=== PATIENT | male | born 1955 | race Caucasian/White ===

== ENCOUNTER → 2016-05-04 | Outpatient (CLI) | payer OTHER ==
[~2016-05-04] MED LIST: AMLO-114 PO; ASPI81TA28 PO; ATOR10TA88 PO; CHOL100010 PO; CYAN1CAP4 PO; CYAN5000; DXY100 PO; GABA-112 PO; GLC500 PO; HYZ/10015 PO; METO50TA16 PO; NVLGI7030 SC
[2016-05-04 12:48] LABS: ALT/SGPT 33 U/L (12-78); AST/SGOT 18 U/L (15-37); BLOOD UREA NITROGEN 22 mg/dl (7-18); BUN/CREATININE RATIO 18.5 (10-20); CARBON DIOXIDE 25 mmol/L (21-32); CHLORIDE 105 mmol/L (98-107); CHOLESTEROL 203 mg/dl (0-200); ESTIMATED AVERAGE GLUCOSE 194 mg/dl; GLUCOSE 156 mg/dl (70-99); HA1C FLAG Normal (Normal); SODIUM 139 mmol/L (136-145)
[2016-05-04 12:51] LABS: ALB/GLOB RATIO 1.1 (0.9-2); ALKALINE PHOSPHATASE 73 U/L (45-117); HDL CHOLESTEROL 51 mg/dl; LDL CHOLESTEROL CALCULATED 119 mg/dl; TRIGLYCERIDES 164 mg/dl (0-150); VERY LOW DENSITY LIPOPROT CALC 33 mg/dl
== END | disposition home or self-care (01) ==
LOC: C.LABPVFM 07:15
PROVIDERS: ATTEND Internal Medicine Endocrinology, Diabetes & Metabolism
DX: E11.49 Type 2 diabetes mellitus with other diabetic neurological complication (principal); E11.65 Type 2 diabetes mellitus with hyperglycemia; I10 Essential (primary) hypertension; E78.5 Hyperlipidemia, unspecified

== ENCOUNTER → 2016-08-14 | Outpatient (CLI) | payer OTHER ==
[~2016-08-14] MED LIST changes: +ATOR10TA82 PO; -ATOR10TA88 PO
[2016-08-14 13:20] LABS: ESTIMATED AVERAGE GLUCOSE 134 mg/dl; HA1C FLAG Normal (Normal)
[2016-08-14 13:34] LABS: ALT/SGPT 26 U/L (12-78); BLOOD UREA NITROGEN 21 mg/dl (7-18); BUN/CREATININE RATIO 17.3 (10-20); CARBON DIOXIDE 29 mmol/L (21-32); CHLORIDE 104 mmol/L (98-107); GLUCOSE 138 mg/dl (70-99); POTASSIUM 3.8 mmol/L (3.5-5.1); SODIUM 139 mmol/L (136-145)
[2016-08-14 13:37] LABS: ALB/GLOB RATIO 1.1 (0.9-2); ALKALINE PHOSPHATASE 80 U/L (45-117); AST/SGOT 22 U/L (15-37)
== END | disposition home or self-care (01) ==
LOC: C.LABPVFM 09:17
PROVIDERS: ATTEND Nurse Practitioner Adult Health
DX: E11.49 Type 2 diabetes mellitus with other diabetic neurological complication (principal)

== ENCOUNTER 2016-11-14 08:16 | Inpatient (IN) | payer OTHER ==
[~2016-11-14] VITALS: Ht 177.8 cm; Wt 114.0 kg
--- NOTE | 2016-11-14 08:27 | EMERGENCY ROOM VISIT NOTE ---
History First contact with patient: 08:25 Chief Complaint: FEVER Stated Complaint: [id number] IN STOMACH-BACK PAIN History of Present Illness The patient is a 60 year old male who presents to the Emergency Room via private vehicle with complaints of coming by female "fever, shaking, belching pain in stomach, back pain". He states that Sunday afternoon he developed nausea, fever, chills as well as shakes followed by belching/eructation. He states that he took 2 Aleve which seemed to alleviate the shaking and eructation. He then states that he later developed epigastric abdominal pain. He notes that this is something he is been battling since his open heart surgery. Of which occurred in April 2012, in [facility]. This was after an myocardial infarction. He states that later Sunday, into Sunday morning he developed mid back pain that he notes and describes as "achy". He states this radiates to the posterior neck. Review of Systems A complete 10-point Review of Systems was discussed with the patient, with pertinent positives and negatives listed in the History of Present Illness. All remaining Review of Systems questions can be considered negative unless otherwise specified. Past Medical/Surgical History Medical Problems: (1) Sepsis Diabetes, heart disease, elevated blood pressure Social History Smoking Status: Never Smoker Lives locally. Current/Historical Medications Scheduled Amlodipine (Norvasc), 10 MG PO DAILY Aspirin (Aspirin Ec), 81 MG PO DAILY Atorvastatin (Lipitor), 10 MG PO Q2D Cholecalciferol (Vitamin D), 1,000 UNITS PO DAILY Cyanocobalamin (B-12), 5,000 MCG PO DAILY Gabapentin (Neurontin), 300 MG PO QAM Gabapentin (Neurontin), 100 MG PO QPM Hctz/Losartan (Hyzaar 25MG/100MG), 1 TAB PO DAILY Insulin Aspart 70/30 (Novolog Mix 70/30), 30 SC QAM Insulin Aspart 70/30 (Novolog Mix 70/30), 25 SC QPM Metformin HCl (Metformin HCl), 500 MG PO BID Metoprolol Tartrate (Lopressor) (Lopressor), 50 MG PO DAILY Physical Exam Vital Signs Date Time Temp Pulse Resp B/P (MAP) Pulse Ox O2 Delivery O2 Flow Rate FiO2 11/14/16 12:40 90 11/14/16 12:35 93 Room Air 11/14/16 12:30 36.8 88 24 148/93 93 Room Air 11/14/16 11:30 73 18 121/73 94 Room Air 11/14/16 10:36 74 94 11/14/16 10:31 117/65 11/14/16 10:06 76 25 91 11/14/16 10:01 103/64 11/14/16 09:56 99/63 11/14/16 09:11 93 Room Air 11/14/16 09:06 77 17 93 11/14/16 09:01 100/68 11/14/16 08:46 81 23 93 11/14/16 08:44 85 11/14/16 08:31 126/72 11/14/16 08:21 38.0 92 20 115/73 93 Room Air Physical Exam VITAL SIGNS - Vital signs and nursing notes were reviewed. Afebrile, normotensive, non-tachycardic and saturating on room air 92%. GENERAL -60-year-old male appearing his stated age who is in no acute distress. Communicates well with provider and answers questions appropriately. SKIN - Without rashes. No petechial rashes. There is a small erythematous speck on the patient's left anterior foot. No drainage. HEAD - NC/AT. EYES - PERRL with EOMI bilaterally. Sclera anicteric. EARS - No deformities of external structures noted on gross examination bilaterally. NOSE - Midline and without cyanosis. No epistaxis or purulent drainage noted. Septum midline without deviation or septal hematoma noted. MOUTH/OROPHARYNX - Without perioral cyanosis. Buccal mucosa pink and moist and without leukoplakia. NECK - Neck with FROM. Supple to palpation. No lymphadenopathy noted. No nuchal rigidity. LUNGS - Chest wall symmetric without accessory muscle use, intercostals retractions, or central cyanosis. Normal vesicular breath sounds CTA B/L. No wheezes, rales, or rhonchi appreciated. CARDIAC - RRR with S1/S2. No murmur, rubs, or gallops appreciated. ABDOMEN - Abdominal contour normal without pulsations or visible masses. BS normoactive all four quadrants. Slight tenderness in the periumbilical region. No palpable masses, hepatosplenomegaly, or ascites noted. EXTREMITIES - No clubbing or peripheral cyanosis. No pretibial edema present. NEUROLOGIC - Cranial nerves II through XII grossly intact. Sensory intact to light touch throughout. PSYCH - A&O and cooperates fully with examiner. Pt is very pleasant and interacts well with examiner. Medical Decision & Procedures ER Provider Diagnostic Interpretation: ABDOMINAL ULTRASOUND, RIGHT UPPER QUADRANT HISTORY: elevated bilirubin and epigastric abdominal pain. COMPARISON: None. FINDINGS: Pancreas: The pancreatic head and tail are obscured by overlying bowel gas. The remaining portions of the pancreas are within normal limits. Liver: The liver is echogenic consistent with fatty change. Gallbladder: No gallbladder wall thickening. No gallstones. CBD: 5 mm. Right kidney: No hydronephrosis. IMPRESSION: 1. Hepatic steatosis. 2. Normal gallbladder. No gallstones. Electronically signed by: Gonzalez Armas M.D. 11/14/2016 11:44 AM Dictated Date/Time: 11/14/2016 11:36 AM CHEST 2 VIEWS ROUTINE HISTORY: Epigastric abdominal pain, eructation, back pain, febrile COMPARISON: None. FINDINGS: The lungs are clear. Cardiac silhouette is normal in size. No pleural effusions. No pneumothorax. Poststernotomy changes. IMPRESSION: No acute process. Electronically signed by: Gonzalez Armas M.D. 11/14/2016 9:46 AM Dictated Date/Time: 11/14/2016 9:45 AM Laboratory Results 11/14/16 09:02 Red Blood Count 5.41, Mean Corpuscular Volume 87.8, Mean Corpuscular Hemoglobin 30.5, Mean Corpuscular Hemoglobin Concent 34.7, Mean Platelet Volume 11.0, Neutrophils (%) (Auto) 86.3, Lymphocytes (%) (Auto) 6.2, Monocytes (%) (Auto) 5.8, Eosinophils (%) (Auto) 0.0, Basophils (%) (Auto) 0.6, Neutrophils # (Auto) 5.55, Lymphocytes # (Auto) 0.40, Monocytes # (Auto) 0.37, Eosinophils # (Auto) 0.00, Basophils # (Auto) 0.04 11/14/16 09:02 Test 11/14/16 09:02 11/14/16 09:09 11/14/16 09:24 White Blood Count 6.43 K/uL (4.8-10.8) Red Blood Count 5.41 M/uL (4.7-6.1) Hemoglobin 16.5 g/dL (14.0-18.0) Hematocrit 47.5 % (42-52) Mean Corpuscular Volume 87.8 fL (80-100) Mean Corpuscular Hemoglobin 30.5 pg (25-34) Mean Corpuscular Hemoglobin Concent 34.7 g/dl (32-36) Platelet Count 105 K/uL (130-400) Mean Platelet Volume 11.0 fL (7.4-10.4) Neutrophils (%) (Auto) 86.3 % Lymphocytes (%) (Auto) 6.2 % Monocytes (%) (Auto) 5.8 % Eosinophils (%) (Auto) 0.0 % Basophils (%) (Auto) 0.6 % Neutrophils # (Auto) 5.55 K/uL (1.4-6.5) Lymphocytes # (Auto) 0.40 K/uL (1.2-3.4) Monocytes # (Auto) 0.37 K/uL (0.11-0.59) Eosinophils # (Auto) 0.00 K/uL (0-0.5) Basophils # (Auto) 0.04 K/uL (0-0.2) RDW Standard Deviation 43.4 fL (36.4-46.3) RDW Coefficient of Variation 13.5 % (11.5-14.5) Immature Granulocyte % (Auto) 1.1 % Immature Granulocyte # (Auto) 0.07 K/uL (0.00-0.02) Toxic Vacuolation 1+ Dohle Bodies OCCASIONAL Prothrombin Time 12.0 SECONDS (9.0-12.0) Prothromb Time International Ratio 1.1 (0.9-1.1) Activated Partial Thromboplast Time 31.4 SECONDS (21.0-31.0) Partial Thromboplastin Ratio 1.2 Anion Gap 8.0 mmol/L (3-11) Est Creatinine Clear Calc Drug Dose 76.3 ml/min Estimated GFR () 68.7 Estimated GFR (Non- 59.3 BUN/Creatinine Ratio 15.6 (10-20) Estimated Average Glucose 131 mg/dl Hemoglobin A1c 6.2 % (4.5-5.6) Calcium Level 8.4 mg/dl (8.5-10.1) Magnesium Level 1.3 mg/dl (1.8-2.4) Total Bilirubin 1.1 mg/dl (0.2-1) Aspartate Amino Transf (AST/SGOT) 27 U/L (15-37) Alanine Aminotransferase (ALT/SGPT) 23 U/L (12-78) Alkaline Phosphatase 47 U/L (45-117) Total Creatine Kinase 123 U/L (39-308) Creatine Kinase MB 0.6 ng/ml (0.5-3.6) Creatine Kinase MB Ratio 0.5 (0-3.0) Total Protein 6.9 gm/dl (6.4-8.2) Albumin 3.3 gm/dl (3.4-5.0) Globulin 3.6 gm/dl (2.5-4.0) Albumin/Globulin Ratio 0.9 (0.9-2) Lipase 140 U/L (73-393) Thyroid Stimulating Hormone (TSH) 0.473 uIu/ml (0.300-4.500) Lyme Disease IgG Antibody NEG (NEG) Lyme Disease IgM Antibody NEG (NEG) Hepatitis C Antibody Screen NEG (NEG) Bedside Lactic Acid Venous 2.27 mmol/L (0.90-1.70) Bedside Troponin I < 0.030 ng/ml (0-0.045) Urine Color ORANGE Urine Appearance CLEAR (CLEAR) Urine pH 5.5 (4.5-7.5) Urine Specific [place] 1.030 (1.000-1.030) Urine Protein 2+ (NEG) Urine Glucose (UA) TRACE (NEG) Urine Ketones TRACE (NEG) Urine Occult Blood NEG (NEG) Urine Nitrite POS (NEG) Urine Bilirubin NEG (NEG) Urine Urobilinogen NEG (NEG) Urine Leukocyte Esterase TRACE (NEG) Urine WBC (Auto) 1-5 /hpf (0-5) Urine RBC (Auto) 5-10 /hpf (0-4) Urine Hyaline Casts (Auto) /lpf (0-5) Urine Epithelial Cells (Auto) >30 /lpf (0-5) Urine Bacteria (Auto) NEG (NEG) Urine Renal Epithelial Cells /lpf (0-5) Urine Pathogenic Casts /lpf (0) Medications Administered Medications (Trade) Dose Ordered Sig/Parish Route Start Time Stop Time Status Last Admin Dose Admin Piperacillin Sod/ Tazobactam Sod (Zosyn Iv) 4.5 gm NOW STAT IV 8/15/17 09:39 11/14/16 09:40 DC 11/14/16 09:55 4.5 GM Vancomycin HCl 1000 mg/Sodium Chloride 270 ml @ 125 mls/hr NOW STAT IV 11/14/16 09:39 11/14/16 11:48 DC 11/14/16 10:28 125 MLS/HR Sodium Chloride 1,000 ml @ 999 mls/hr Q1H1M STAT IV 11/14/16 09:58 11/14/16 10:58 DC 11/14/16 09:58 999 MLS/HR Magnesium Sulfate (Magnesium Sulfate) 1 gm NOW STAT IV 11/14/16 10:31 11/14/16 10:34 DC 11/14/16 10:40 1 GM Potassium Chloride (Klor-Con M10) 20 meq NOW STAT PO 11/14/16 12:20 11/14/16 12:21 DC 11/14/16 12:36 20 MEQ Acetaminophen (Tylenol Tab) 650 mg Q4H PRN PO 11/14/16 13:30 12/14/16 13:29 11/14/16 16:24 650 MG Medical Decision Patient was seen and evaluated as above. After obtaining a thorough history and physical examination IV access was initiated, and the above workup was performed. Patient has EKG bedside of normal sinus rhythm, possible left atrial enlargement, nonspecific ST segment abnormality. This is at a rate of 82 bpm. No ectopy or ischemic change. No previous for comparison. No evidence of [place] at this time. Blood cultures were obtained. Bedside lactic is elevated. Fluids were given. Then, tendon Zosyn ordered. CBC reveals no leukocytosis or anemia. There is toxic back elevation and dohle bodies noted. Coags unremarkable. Sodium low at 135, potassium low at 3.3. BUN/creatinine high at 20. Glucose high at 259. Mag low at 1.3. Total bilirubin high at 1.1. Urine reveals trace ketones, positive nitrites, leukocyte esterase, 5-10 red blood cells, and greater than 30 epithelial cells. Chest x-ray negative. Right upper quadrant ultrasound negative. He is resting comfortable, and has no complaints. He is actually embarrassed that he is here at this time without any symptoms. Because he has the elevated lactic, he is febrile, there is concern for sepsis. I will advise admission to the hospital. Case was discussed with the attending. Please refer to further documentation regarding his stay. In evaluation treatment this patient following differential diagnoses were entertained: Sepsis, SIRS, among others. Impression Primary Impression: Sepsis Additional Impressions: Hypokalemia Hypomagnesemia Departure Information Dispostion Admitted as an inpatient Condition FAIR Referrals Esdras Chilel M.D. (PCP) Patient Instructions My [facility] Problem Qualifiers
[2016-11-14] MEDS ORDERED: ASPI81TA28 PO (08:57)
[2016-11-14] MEDS ORDERED: GLC500 PO (08:57)
[2016-11-14] MEDS ORDERED: GABA-112 PO ×2 (08:57)
[2016-11-14] MEDS ORDERED: AMLO-114 PO (08:57)
[2016-11-14] MEDS ORDERED: NVLGI7030 SC ×2 (08:57)
[2016-11-14] MEDS ORDERED: CHOL100010 PO (08:57)
[2016-11-14] MEDS ORDERED: HYZ/10015 PO (08:57)
[2016-11-14] MEDS ORDERED: METO50TA16 PO (08:57)
[2016-11-14] MEDS ORDERED: CYAN5000 (08:57)
[2016-11-14] MEDS ORDERED: ATOR10TA88 PO (08:57)
[2016-11-14] MEDS ORDERED: CYAN1CAP4 PO (08:57)
[2016-11-14 09:23] LABS: HEMATOCRIT 47.5 % (42-52); MEAN CELL VOLUME 87.8 fL (80-100); MEAN CORPUSCULAR HEMOGLOBIN 30.5 pg (25-34); MEAN CORPUSCULAR HGB CONC 34.7 g/dl (32-36); PLATELET COUNT 105 K/uL (130-400); RED BLOOD COUNT 5.41 M/uL (4.7-6.1); WHITE BLOOD COUNT 6.43 K/uL (4.8-10.8)
[2016-11-14 09:32] LABS: INR 1.1 (0.9-1.1); PARTIAL THROMBOPLASTIN RATIO 1.2
[2016-11-14 09:35] LABS: BUN/CREATININE RATIO 15.6 (10-20); CALCIUM 8.4 mg/dl (8.5-10.1); CREATININE 1.3 mg/dl (0.60-1.40); MAGNESIUM 1.3 mg/dl (1.8-2.4); POTASSIUM 3.3 mmol/L (3.5-5.1)
[2016-11-14] MEDS ORDERED: PIPERACILLIN/TAZOBACTAM 4.5 GM/100ML D5W IV STA (09:39)
[2016-11-14] MEDS ORDERED: VANCOMYCIN INJ 1,000 MG in SODIUM CHLORIDE 0.9% 250ML 250 ML IV STA (09:39)
[2016-11-14 09:45] LABS: URINE APPEARANCE CLEAR (CLEAR); URINE COLOR ORANGE; URINE EPITHELIAL CELL AUTO >30 /lpf (0-5); URINE NITRITE POS (NEG); URINE PH 5.5 (4.5-7.5); UROBILINOGEN NEG (NEG); ZZUR CULT IF INDIC CLEAN CATCH NO
[2016-11-14 09:46] LABS: ALB/GLOB RATIO 0.9 (0.9-2); CKMB/CK RATIO 0.5 (0-3.0); THYROID STIMULATING HORMONE 0.473 uIu/ml (0.300-4.500)
--- NOTE | 2016-11-14 09:47 | DIAGNOSTIC IMAGING REPORT ---
CHEST 2 VIEWS ROUTINE HISTORY: Epigastric abdominal pain, eructation, back pain, febrile COMPARISON: None. FINDINGS: The lungs are clear. Cardiac silhouette is normal in size. No pleural effusions. No pneumothorax. Poststernotomy changes. IMPRESSION: No acute process. Electronically signed by: Gonzalez Armas M.D. 11/14/2016 9:46 AM Dictated Date/Time: 11/14/2016 9:45 AM
[2016-11-14 09:49] LABS: BASO % 0.6 %; BASO ABS # 0.04 K/uL (0-0.2); COMPLETE YES; DOHLE BODIES OCCASIONAL; IG% 1.1 %; LYMPH % 6.2 %; MONO % 5.8 %; NEUT % 86.3 %; VACUOLIZATION 1+
[2016-11-14] MEDS ORDERED: SODIUM CHLORIDE 0.9% 1000ML 1,000 ML IV STA (09:58)
[2016-11-14 10:16] LABS: MANUAL MICROSCOPIC REQUIRED? NO; REVIEW REQ? YES; URINE BILIRUBIN NEG (NEG)
[2016-11-14] MEDS ORDERED: MAGNESIUM SULFATE 1GM / D5W 1 GM BAG IV STA ×2 (10:31→13:57)
[2016-11-14 11:04] LABS: LYME DISEASE AB IGG NEG (NEG); LYME DISEASE AB IGM NEG (NEG)
--- NOTE | 2016-11-14 11:45 | DIAGNOSTIC IMAGING REPORT ---
ABDOMINAL ULTRASOUND, RIGHT UPPER QUADRANT HISTORY: elevated bilirubin and epigastric abdominal pain. COMPARISON: None. FINDINGS: Pancreas: The pancreatic head and tail are obscured by overlying bowel gas. The remaining portions of the pancreas are within normal limits. Liver: The liver is echogenic consistent with fatty change. Gallbladder: No gallbladder wall thickening. No gallstones. CBD: 5 mm. Right kidney: No hydronephrosis. IMPRESSION: 1. Hepatic steatosis. 2. Normal gallbladder. No gallstones. Electronically signed by: Gonzalez Armas M.D. 11/14/2016 11:44 AM Dictated Date/Time: 11/14/2016 11:36 AM
[2016-11-14] MEDS ORDERED: MAGNESIUM SULFATE 1GM / D5W 1 GM in PREMIXED IN D5W 100 ML IV STA (12:20)
[2016-11-14] MEDS ORDERED: POTASSIUM CHLORIDE 10 MEQ TABCR PO STA (12:20)
[2016-11-14 12:35] VITALS: O2SAT 93; Ht 177.8 cm; Wt 114.0 kg
[2016-11-14] MEDS ORDERED: POLYETHYLENE (MIRALAX) 17 GM PACK PO PRN (13:30)
[2016-11-14] MEDS ORDERED: GLUCAGON FOR INJ 1 MG VIAL SQ PRN (13:30)
[2016-11-14] MEDS ORDERED: GLUCOSE 10 TABS/TUBE PO PRN (13:30)
[2016-11-14] MEDS ORDERED: ONDANSETRON INJ 2 MG/ML 2 ML VIAL IV PRN (13:30)
[2016-11-14] MEDS ORDERED: ALUMINUM/MAGNESIUM/SIMETH (MAALOX MAX) 30 ML UDC PO PRN (13:30)
[2016-11-14] MEDS ORDERED: MAGNESIUM HYDROXIDE SUSP 30 ML UDC PO PRN (13:30)
[2016-11-14] MEDS ORDERED: DEXTROSE 50% 50 ML SYR IV PRN (13:30)
[2016-11-14] MEDS ORDERED: GLUCOSE 40% GEL 15 GM TUBE PO PRN (13:30)
[2016-11-14 14:16] LABS: ESTIMATED AVERAGE GLUCOSE 131 mg/dl; HA1C FLAG Normal (Normal)
--- NOTE | 2016-11-14 14:29 | History and Physical ---
History & Physical Date & Time of Service: Nov 14, 2016 at 13:51 Chief Complaint: Cvblh-Hudmkui-Isqyuuqo-Pain In Stomach-Back Pain Primary Care Physician: Esdras Chilel M.D. History of Present Illness Source: patient, spouse, clinic records, hospital records This is a 60 y/o male with a history of CAD, h/o PR 2011 s/p CABG x3, HTN, HLD, and DM II w/neuropathy who presented to the ED on 11/14 with fevers, chills and nausea x 2 days. The patient first developed these symptoms 2 nights ago. He states that he has been having fevers at home as high as 102F, but they have resolved with OTC antipyretics. The patient has also been complaining of sweats , chills and shaking. He has had nausea and decreased appetite but denies any vomiting. He has been feeling weak and fatigued. The patient denies any abdominal pain currently, but he states that he will intermittently have epigastric pain when the area is palpated or agitated. He admits to chronic numbness/tingling in his left arm that is unchanged. The patient denies chest pain, palpitations, claudication, cough, wheezing, shortness of breath, vomiting , abdominal pain, dysuria, hematuria, urinary retention, increased urinary frequency, malodorous urine, paralysis, weakness, acute/different numbness and tingling. Past Medical/Surgical History CAD PR on 04/01/12, CABG x 3 on 04/03/12 HTN HLD DM II w/neuropathy Family History Diabetes mellitus Hypertension Kidney disease Lung cancer Myocardial infarction Stroke Social History Smoking Status: Never Smoker Smokeless Tobacco Use: No Alcohol Use: occasionally Drug Use: none Marital Status: Housing status: lives with significant other Occupational Status: retired Allergies Coded Allergies: No Known Allergies (Unverified , 11/14/16) Home Medications Scheduled Amlodipine (Norvasc), 10 MG PO DAILY Aspirin (Aspirin Ec), 81 MG PO DAILY Atorvastatin (Lipitor), 10 MG PO Q2D Cholecalciferol (Vitamin D), 1,000 UNITS PO DAILY Cyanocobalamin (B-12), 5,000 MCG PO DAILY Gabapentin (Neurontin), 300 MG PO QAM Gabapentin (Neurontin), 100 MG PO QPM Hctz/Losartan (Hyzaar 25MG/100MG), 1 TAB PO DAILY Insulin Aspart 70/30 (Novolog Mix 70/30), 30 SC QAM Insulin Aspart 70/30 (Novolog Mix 70/30), 25 SC QPM Metformin HCl (Metformin HCl), 500 MG PO BID Metoprolol Tartrate (Lopressor) (Lopressor), 50 MG PO DAILY Review of Systems Constitutional: + fever, + chills, + sweats, + weakness, + fatigue Eyes: No worsening of vision, No eye pain, No diplopia ENT: No hearing loss, No sore throat, No trouble swallowing Respiratory: No cough, No wheezing, No shortness of breath Cardiovascular: No chest pain, No claudication, No palpitations Abdomen: + nausea, No pain, No vomiting, No diarrhea, No GI bleeding Musculoskeletal: No joint pain, No muscle pain, No calf pain Genitourinary - Male: No hematuria, No dysuria, No urinary frequency, No urinary retention Neurologic: + numbness/tingling (chronic, nothing acute/different), No paralysis, No weakness Integumentary: No rash, No itch, No color change Physical Exam Vital Signs Date Time Temp Pulse Resp B/P (MAP) Pulse Ox O2 Delivery O2 Flow Rate FiO2 11/14/16 12:40 90 11/14/16 12:35 93 Room Air 11/14/16 12:30 36.8 88 24 148/93 93 Room Air 11/14/16 11:30 73 18 121/73 94 Room Air 11/14/16 10:36 74 94 11/14/16 10:31 117/65 11/14/16 10:06 76 25 91 11/14/16 10:01 103/64 11/14/16 09:56 99/63 11/14/16 09:11 93 Room Air 11/14/16 09:06 77 17 93 11/14/16 09:01 100/68 11/14/16 08:46 81 23 93 11/14/16 08:44 85 11/14/16 08:31 126/72 11/14/16 08:21 38.0 92 20 115/73 93 Room Air General appearance: +Obese. Chills. Well-developed, well-nourished, no apparent distress Head: Normocephalic, atraumatic Eyes: Normal inspection, PERRL, EOMI ENT: Normal ENT inspection, hearing grossly normal, pharynx normal Neck: Supple, no JVD, trachea midline Respiratory/Chest: Lungs clear to auscultation, normal breath sounds, no respiratory distress Cardiovascular: Regular rate & rhythm, no gallop, no murmur Abdomen/GI: Normal bowel sounds, non-tender, soft Extremities/Musculoskeletal: Normal inspection, no calf tenderness, no pedal edema Neurological/Psych: Alert, normal mood/affect, oriented x 3 Skin: Normal color, warm/dry, no rash Diagnostics Laboratory Results Results Past 24 Hours Test 11/14/16 09:02 11/14/16 09:09 11/14/16 09:24 11/14/16 13:30 Range/Units White Blood Count 6.43 4.8-10.8 K/uL Red Blood Count 5.41 4.7-6.1 M/uL Hemoglobin 16.5 14.0-18.0 g/dL Hematocrit 47.5 42-52 % Mean Corpuscular Volume 87.8 80-100 fL Mean Corpuscular Hemoglobin 30.5 25-34 pg Mean Corpuscular Hemoglobin Concent 34.7 32-36 g/dl Platelet Count 105 130-400 K/uL Mean Platelet Volume 11.0 7.4-10.4 fL Neutrophils (%) (Auto) 86.3 % Lymphocytes (%) (Auto) 6.2 % Monocytes (%) (Auto) 5.8 % Eosinophils (%) (Auto) 0.0 % Basophils (%) (Auto) 0.6 % Neutrophils # (Auto) 5.55 1.4-6.5 K/uL Lymphocytes # (Auto) 0.40 1.2-3.4 K/uL Monocytes # (Auto) 0.37 0.11-0.59 K/uL Eosinophils # (Auto) 0.00 0-0.5 K/uL Basophils # (Auto) 0.04 0-0.2 K/uL RDW Standard Deviation 43.4 36.4-46.3 fL RDW Coefficient of Variation 13.5 11.5-14.5 % Immature Granulocyte % (Auto) 1.1 % Immature Granulocyte # (Auto) 0.07 0.00-0.02 K/uL Toxic Vacuolation 1+ Dohle Bodies OCCASIONAL Prothrombin Time 12.0 9.0-12.0 SECONDS Prothromb Time International Ratio 1.1 0.9-1.1 Activated Partial Thromboplast Time 31.4 21.0-31.0 SECONDS Partial Thromboplastin Ratio 1.2 Sodium Level 135 136-145 mmol/L Potassium Level 3.3 3.5-5.1 mmol/L Chloride Level 101 98-107 mmol/L Carbon Dioxide Level 26 21-32 mmol/L Anion Gap 8.0 3-11 mmol/L Blood Urea Nitrogen 20 7-18 mg/dl Creatinine 1.30 0.60-1.40 mg/dl Est Creatinine Clear Calc Drug Dose 76.3 ml/min Estimated GFR () 68.7 Estimated GFR (Non- 59.3 BUN/Creatinine Ratio 15.6 10-20 Random Glucose 259 70-99 mg/dl Calcium Level 8.4 8.5-10.1 mg/dl Magnesium Level 1.3 1.8-2.4 mg/dl Total Bilirubin 1.1 0.2-1 mg/dl Aspartate Amino Transf (AST/SGOT) 27 15-37 U/L Alanine Aminotransferase (ALT/SGPT) 23 12-78 U/L Alkaline Phosphatase 47 45-117 U/L Total Creatine Kinase 123 39-308 U/L Creatine Kinase MB 0.6 0.5-3.6 ng/ml Creatine Kinase MB Ratio 0.5 0-3.0 Total Protein 6.9 6.4-8.2 gm/dl Albumin 3.3 3.4-5.0 gm/dl Globulin 3.6 2.5-4.0 gm/dl Albumin/Globulin Ratio 0.9 0.9-2 Lipase 140 73-393 U/L Thyroid Stimulating Hormone (TSH) 0.473 0.300-4.500 uIu/ml Lyme Disease IgG Antibody NEG NEG Lyme Disease IgM Antibody NEG NEG Bedside Lactic Acid Venous 2.27 0.90-1.70 mmol/L Bedside Troponin I < 0.030 0-0.045 ng/ml Urine Color ORANGE Urine Appearance CLEAR CLEAR Urine pH 5.5 4.5-7.5 Urine Specific Hurricane 1.030 1.000-1.030 Urine Protein 2+ NEG Urine Glucose (UA) TRACE NEG Urine Ketones TRACE NEG Urine Occult Blood NEG NEG Urine Nitrite POS NEG Urine Bilirubin NEG NEG Urine Urobilinogen NEG NEG Urine Leukocyte Esterase TRACE NEG Urine WBC (Auto) 1-5 0-5 /hpf Urine RBC (Auto) 5-10 0-4 /hpf Urine Hyaline Casts (Auto) 0-5 /lpf Urine Epithelial Cells (Auto) >30 0-5 /lpf Urine Bacteria (Auto) NEG NEG Urine Renal Epithelial Cells 0-5 /lpf Urine Pathogenic Casts 0 /lpf Test 11/14/16 13:46 Range/Units Microbiology Results 11/14/16 Blood Culture, Received Pending 11/14/16 Blood Culture, Received Pending 11/14/16 Urine Culture, Received Pending Diagnostic Radiology Reviewed the following studies and agree with interpretation as follows: Patient Name: AKILAH MADERA Unit Number: [id number] Dictated: 11/14/16944 Transcribed: 11/14/16944 [facility] Printed Date/Time: [~ rep prt dt]/[~ rep prt tm] [~ rep ct labl] - [~ rep ct ivnm] [facility] [place] [address] Dictated: 11/14/16944 Transcribed: 11/14/16944 [place] Printed Date/Time: [~ rep prt dt]/[~ rep prt tm] [~ rep ct labl] - [~ rep ct ivnm] Patient: AKILAH MADERA Address1: [address] [place] [address] Rec: [id number] Address2: Acct ID: [id number] [facility] Zip: [place] [address] Date: 1955 Sex: M Room/Bed: Ref Phy: Esdras Chilel M.D. SC: PRISCILA Att Phy: Report #: [id number] [facility] Phy: Esdras Chilel M.D. Test: CXR Admit Phy: Social Work Job Titles: [employer] Interpreting Phy: Gonzalez Armas MD Diagnosis: [id number]- PAIN IN STOMACH-BACK PAIN Ordering Phy: Clement Alexis PA-C Service Date: 11/14/16 Admit Date: 11/14/16 MNE: PWRSCRIBE CONF: DICTATED BY: Gonzalez Armas M.D.]] CC: Clement Alexis PA-C Finnerty, Kevin M., MD Woolley, Esdras O.,M.D. Endcc: [~ rep ct add3]] CHEST 2 VIEWS ROUTINE HISTORY: Epigastric abdominal pain, eructation, back pain, febrile COMPARISON: None. FINDINGS: The lungs are clear. Cardiac silhouette is normal in size. No pleural effusions. No pneumothorax. Poststernotomy changes. IMPRESSION: No acute process. Electronically signed by: Gonzalez Armas M.D. 11/14/2016 9:46 AM Dictated Date/Time: 11/14/2016 9:45 AM The status of this report is Signed. Draft = Not yet reviewed or approved by Radiologist. Signed = Reviewed and approved by Radiologist. <AttendingPhy></AttendingPhy> <FamilyPhy>Esdras Chilel M.D.</FamilyPhy> < PrimaryPhy>Esdras Chilel M.D.</PrimaryPhy> <UnitNumber>[id number]</UnitNumber > <VisitNumber>[id number]</VisitNumber> <PatientName>CASSYAKILAH</PatientName > <DateOfBirth>1955</DateOfBirth> <Location>C.EDB</Location> <ServiceDate> 11/14/16</ServiceDate> <MNE>ESINDI</MNE> <OrderingPhy>Clement Alexis PA-C</ OrderingPhy> <OrderingPhyMNE>f rep ord dr avalos</OrderingPhyMNE> <DictatingPhyMNE> f rep dict dr avalos</DictatingPhyMNE> <CCListMNE>f rep ct mne</CCListMNE> < AdmittingPhyMNE>f pt admit dr avalos</AdmittingPhyMNE> <AttendingPhyMNE>f pt attend dr avalos</AttendingPhyMNE> <ConsultingPhyMNE>f pt consult dr avalos</ConsultingPhyMNE> <FamilyPhyMNE>f pt fam dr avalos</FamilyPhyMNE> <OtherPhyMNE>f pt other dr avalos</OtherPhyMNE> < PrimaryPhyMNE>f pt prim care dr avalos</PrimaryPhyMNE> <ReferringPhyMNE>f pt referring dr avalos</ReferringPhyMNE> Patient Name: AKILAH MADERA Unit Number: [id number] Dictated: 11/14/161135 Transcribed: 11/14/161135 [facility] Printed Date/Time: [~ rep prt dt]/[~ rep prt tm] [~ rep ct labl] - [~ rep ct ivnm] [facility] Radiology Department [place] [id number] Dictated: 11/14/161135 Transcribed: 11/14/161135 [place] Printed Date/Time: [~ rep prt dt]/[~ rep prt tm] [~ rep ct labl] - [~ rep ct ivnm] Patient: AKILAH MADERA Address1: [address] [facility] Rec: [id number] Address2: Acct ID: [id number] [facility] Zip: [place] [address] Date: 1955 Sex: M Room/Bed: Ref Phy: Esdras Chilel M.D. SC: PRISCILA Att Phy: Report #: [id number] [facility] Phy: Esdras Chilel M.D. Test: ABDL Admit Phy: Social Work Job Titles: [place] Interpreting Phy: Gonzalez Armas MD Diagnosis: [id number]- PAIN IN STOMACH-BACK PAIN Ordering Phy: Clement Alexis PA-C Service Date: 11/14/16 Admit Date: 11/14/16 MNE: PWRSCRIBE CONF: DICTATED BY: Gonzalez Armas M.D.]] CC: Clement Alexis PA-C Finnerty, Kevin M., MD Woolley, Paul O., M.D. Endcc: [~ rep ct add3]] ABDOMINAL ULTRASOUND, RIGHT UPPER QUADRANT HISTORY: elevated bilirubin and epigastric abdominal pain. COMPARISON: None. FINDINGS: Pancreas: The pancreatic head and tail are obscured by overlying bowel gas. The remaining portions of the pancreas are within normal limits. Liver: The liver is echogenic consistent with fatty change. Gallbladder: No gallbladder wall thickening. No gallstones. CBD: 5 mm. Right kidney: No hydronephrosis. IMPRESSION: 1. Hepatic steatosis. 2. Normal gallbladder. No gallstones. Electronically signed by: Gonzalez Armas M.D. 11/14/2016 11:44 AM Dictated Date/Time: 11/14/2016 11:36 AM The status of this report is Signed. Draft = Not yet reviewed or approved by Radiologist. Signed = Reviewed and approved by Radiologist. <AttendingPhy></AttendingPhy> <FamilyPhy>Esdras Chilel M.D.</FamilyPhy> < PrimaryPhy>Esdras Chilel M.D.</PrimaryPhy> <UnitNumber>[id number]</UnitNumber > <VisitNumber>[id number]</VisitNumber> <PatientName>AKILAH MADERA</PatientName > <DateOfBirth>1955</DateOfBirth> <Location>C.EDB</Location> <ServiceDate> 11/14/16</ServiceDate> <MNE>ESINDI</MNE> <OrderingPhy>Clement Alexis PA-C</ OrderingPhy> <OrderingPhyMNE>f rep ord dr avalos</OrderingPhyMNE> <DictatingPhyMNE> f rep dict dr avalos</DictatingPhyMNE> <CCListMNE>f rep ct mne</CCListMNE> < AdmittingPhyMNE>f pt admit dr avalos</AdmittingPhyMNE> <AttendingPhyMNE>f pt attend dr avalos</AttendingPhyMNE> <ConsultingPhyMNE>f pt consult dr avalos</ConsultingPhyMNE> <FamilyPhyMNE>f pt fam dr avalos</FamilyPhyMNE> <OtherPhyMNE>f pt other dr avalos</OtherPhyMNE> < PrimaryPhyMNE>f pt prim care dr avalos</PrimaryPhyMNE> <ReferringPhyMNE>f pt referring dr avalos</ReferringPhyMNE> EKG Reviewed EKG and agree with interpretation as follows: 82 bpm, NSR Impression Assessment and Plan 60 y/o male with a history of CAD, h/o PR 2012 s/p CABG x3, HTN, HLD, and DM II w/neuropathy who presented to the ED on 11/14 with fevers, chills and nausea x 2 days. Pt febrile with temperature of 38C on arrival, HR 92. EKG shows no ischemic changes. CXR no acute disease. Abdominal ultrasound shows fatty liver , otherwise unremarkable. Potassium 3.3, magnesium 1.3. POC lactic acid 2.27. Cardiac enzymes negative. Pt did become hypotensive in ED with BP down to 99/ 63, but this resolved with a 1L NSS bolus. Sepsis of unknown source -Admit to telemetry -Repeat lactic acid now -NSS + 20 KCl at 125 cc/hr as pt has not been eating much -Blood cultures pending -UA negative for bacteria but positive for nitrites and leuks, will check urine culture -Lyme negative -Continue empiric vancomycin and Zosyn for now pending cultures -CT abdomen/pelvis with IV contrast ordered for further evaluation Hypomagnesemia, hypokalemia -Magnesium 1.3 on admission. Received 2 gm magnesium sulfate IV in ED -Potassium 3.3 on admission. Received 20 mEq KCL PO in ED CAD, h/o PR and CABG, HTN, HLD--stable -Continue amlodipine 10 mg PO qd, ASA 81 mg PO qd, atorvastatin 10 mg PO q2d, losartan/HCTZ 100/25 mg PO qd, and metoprolol tartrate 50 mg PO qd DM II w/neuropathy--last HgbA1c checked 08/14/16 was 6.3 -Hold metformin and 70/30 -Insulin sliding scale -Check BSGs q ac and qhs -Recheck HgbA1c -Continue gabapentin 300 mg PO qam and 100 mg PO qpm DVT prophylaxis -Enoxaparin 40 mg SC q24h -LINH Kang Code Status -Level I, FULL RESUSCITATION STATUS Level of Care Telemetry Advanced Directives Existing Living Will: Yes Existing Power of Automatic Lathe Setter: Yes Resuscitation Status FULL RESUSCITATION VTE Prophylaxis VTE Risk Assessment Done? Y/N: Yes Risk Level: Moderate Given or contraindicated: Enoxaparin (Lovenox)SQ, T.E.D. Stockings, SCD's Note Attending Admission Note & Attestation: Pt seen/examined, chart reviewed, care plan d/w KAMRAN Saravia. I agree w/ the olson components of her admission documentation. 60yo male with h/o CAD & HTN presenting with several days of a febrile illness. No recent travel. No sick contacts[place] had tick exposure this summer. Has had nonspecific abdominal discomfort & belching. No rashes. PMH, PSH, allergies, meds, sochx, famhx, ros - reviewed vitals - febrile, BP was low-normal now normal gen - flushed face, nontoxic, NAD, a/o x 3 neck - no lymphadenopathy throat - hallitosis heart - RRR lungs - faint dry rales right base only abd - obese, soft, minimal RUQ tenderness to very deep palpation; flanks w/o CVA tenderness ext - no joint effusions skin - no generalized rash back - no tenderness over t-spine or l-spine labs - thrombocytopenia left shift on differential low mag low K t. bili scantly high 1.1 lactate mildly high u/a with nitrites lyme's IgM/IgG neg cxr neg A/P: Sepsis w/ uncertain source hypokalemia, hypomagnesemia thrombocytopenia mild abdominal pain with neg RUQ u/s plan - copious hydration replace K, mag broad-spectrum IV abx dickey-cx send ehrlichia and anaplasmosis titers CT abd/pelvis - r/o renal, biliary pathology, etc strongly consider doxy to cover for tick borne infection hold HCTZ-losartan due to low-normal BP and dehydration consider viral titers if w/u negative consider ID consultation if source remains uncertain repeat labs DEENA Shukla MD
[2016-11-14] MEDS ORDERED: OPTIRAY 320 IV PRN (14:45)
--- NOTE | 2016-11-14 15:07 | DIAGNOSTIC IMAGING REPORT ---
CT ABD/PELVIS IV CONTRAST ONLY CLINICAL HISTORY: fevers, epigastric pain COMPARISON STUDY: Biliary ultrasound dated 11/14/2016 TECHNIQUE: Following the IV administration of 110 mL of Optiray-320, CT scan of the abdomen and pelvis was performed from the lung bases to the proximal femurs. Images are reviewed in the axial, sagittal, and coronal planes. IV contrast was administered without complication. A dose lowering technique was utilized adhering to the principles of ALARA. CT DOSE: 1307.90 mGy.cm FINDINGS: Lower chest: There are bibasal atelectatic changes. There are trace effusions. Liver: There is mild hepatic steatosis. No space-occupying hepatic masses are visualized. Gallbladder: Unremarkable. Spleen: The spleen is mildly enlarged measuring 13.9 cm. Pancreas: Unremarkable. Adrenal glands: Unremarkable. Kidneys: There is symmetric renal cortical enhancement. The kidneys are normal in size without hydronephrosis. Bowel: There are no transition zones indicate bowel obstruction. There is no acute diverticulitis. There is no evidence of acute appendicitis. Peritoneum: There is no ascites. There is no free air. There are bilateral inguinal hernias. The right inguinal hernia contains a portion of the bladder dome. Vasculature: The abdominal aorta is normal in course and caliber. Adenopathy: None. Pelvic viscera: The bladder, and pelvic viscera are unremarkable. Skeletal structures: There are postsurgical changes of midline sternotomy. 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 There are advanced multilevel degenerative changes within the spine. IMPRESSION: 1. No evidence of bowel obstruction. No evidence of free air 2. Hepatic steatosis 3. Mild splenomegaly 4. No evidence of acute appendicitis. No evidence of acute diverticulitis 5. Bilateral inguinal hernias. The right inguinal hernia contains a portion of the bladder. Electronically signed by: Ibrahima Maloney M.D. 11/14/2016 3:06 PM Dictated Date/Time: 11/14/2016 3:00 PM
[2016-11-14 16:00] VITALS: O2SAT 94
[2016-11-14] MEDS ORDERED: VANCOMYCIN INJ 1,750 MG in SODIUM CHLORIDE 0.9% 500ML 500 ML IV ONE (16:00)
[2016-11-14] MEDS ORDERED: PIPERACILL/TAZOBAC CONSULT ACTIVE PRN (16:00)
[2016-11-14] MEDS ORDERED: VANCOMYCIN CONSULT ACTIVE PRN (16:00)
[2016-11-14] MEDS: NSS + 20MEQ KCL 1000ML 1,000 ML IV SCH ×2 (16:12→23:35)
[2016-11-14] MEDS: PIPERACILL/TAZOBAC IV 4.5 GM in DEXTROSE 5% 100ML 100 ML IV SCH (16:19)
[2016-11-14 16:22] VITALS: TEMP 37.6
[2016-11-14] MEDS: ACETAMINOPHEN 325 MG TAB PO PRN ×2 (16:24→23:35)
[2016-11-14] MEDS ORDERED: DOXYCYCLINE HYCLATE 100 MG CAP PO STA (17:25)
[2016-11-14] MEDS: INSULIN ASPART 100 UNITS/ML 3 ML PEN SC SCH ×2 (17:48→20:47)
[2016-11-14 17:54] VITALS: TEMP 38.2
[2016-11-14] MEDS ORDERED: ENOXAPARIN 40 MG/0.4 ML SYR SC SCH (18:00)
--- NOTE | 2016-11-14 18:29 | Pharmacy Progress Note ---
Pharmacy Abx Initial Consult Date of Service Nov 14, 2016. Pharmacy Dosing Scope Date of Consult: 11/14/16 Consultation requested by: Irais Saravia PA-C Pharmacy is consulted to initiate vancomycin/Zosyn IV dosing therapy, order appropriate labs and adjust drug dose/frequency. Subjective The patient is a 60 year old male admitted on Nov 14, 2016 at 13:38. Objective Height (Feet): 5 Height (Inches): 10.00 Weight (Kilograms): 113.700 Vital Signs (Past 12Hrs) Vital Signs Past 12 Hours Date Time Temp Pulse Resp B/P (MAP) Pulse Ox O2 Delivery O2 Flow Rate FiO2 11/14/16 14:17 98 20 163/94 93 Room Air 11/14/16 12:40 90 11/14/16 12:35 93 Room Air 11/14/16 12:30 36.8 88 24 148/93 93 Room Air 11/14/16 11:30 73 18 121/73 94 Room Air 11/14/16 10:36 74 94 11/14/16 10:31 117/65 11/14/16 10:06 76 25 91 11/14/16 10:01 103/64 11/14/16 09:56 99/63 11/14/16 09:11 93 Room Air 11/14/16 09:06 77 17 93 11/14/16 09:01 100/68 11/14/16 08:46 81 23 93 11/14/16 08:44 85 11/14/16 08:31 126/72 11/14/16 08:21 38.0 92 20 115/73 93 Room Air Lab Results (24Hrs) Laboratory Tests (24 Hours) Test 11/14/16 09:02 11/14/16 15:51 White Blood Count 6.43 K/uL (4.8-10.8) Red Blood Count 5.41 M/uL (4.7-6.1) Hemoglobin 16.5 g/dL (14.0-18.0) Hematocrit 47.5 % (42-52) Mean Corpuscular Volume 87.8 fL (80-100) Mean Corpuscular Hemoglobin 30.5 pg (25-34) Mean Corpuscular Hemoglobin Concent 34.7 g/dl (32-36) Platelet Count 105 K/uL (130-400) L Mean Platelet Volume 11.0 fL (7.4-10.4) H Neutrophils (%) (Auto) 86.3 % Lymphocytes (%) (Auto) 6.2 % Monocytes (%) (Auto) 5.8 % Eosinophils (%) (Auto) 0.0 % Basophils (%) (Auto) 0.6 % Neutrophils # (Auto) 5.55 K/uL (1.4-6.5) Lymphocytes # (Auto) 0.40 K/uL (1.2-3.4) L Monocytes # (Auto) 0.37 K/uL (0.11-0.59) Eosinophils # (Auto) 0.00 K/uL (0-0.5) Basophils # (Auto) 0.04 K/uL (0-0.2) Total Creatine Kinase 123 U/L (39-308) Micro Results Date/Time Source Procedure Growth Status 11/14/16 09:10 Blood Blood Culture Pending Received 11/14/16 09:02 Blood Blood Culture Pending Received 11/14/16 09:24 Urine , Clean Catch Urine Culture Pending Received Risk Factors for Resistance * No risk factors for resistance Assessment & Plan Assessment 60 year old male admitted 11/14/16 with a PMH significant for CAD and DM. He has a 2 day history of fevers, chills, and nausea. His fevers have been as high as 102F.He was hypotensive in the ED and had an elevated lactic acid. He is admitted for sepsis of unknown source. Plan vancomycin/Zosyn for treatment of sepsis unknown source Vancomycin IV * Loading dose: 1000 mg in ED + 1750 mg IV x 1 on floor (25 mg/kg) * Maintenance dose: 1500 mg IV (13 mg/kg) every 12 hours (population pharmacokinetics suggest a half-life of 10.3 hr) * Goal trough level for sepsis unknown source : 15 to 20 mcg/mL * Trough was not ordered as empiric indication selected. Order based upon extension of antibiotics. * A less than traditional dose has been selected due to likelihood of drug accumulation in obese patient. Piperacillin/tazobactam * 4.5 g bolus administered over 30 minutes, then 4.5 g IV extended infusion every 8 hours for CrCl greater than 20 mL/min O * Aggressive dosing selected due to BMI 35 or more. Pharmacy will continue to follow and will adjust dose/frequency as necessary. Thank you.
[2016-11-14 19:33] VITALS: BP 94/60; PULSE 75; TEMP 37; O2SAT 92
[2016-11-14] MEDS: GABAPENTIN 100 MG CAP PO SCH (20:47)
[2016-11-14] MEDS: DOXYCYCLINE HYCLATE 100 MG CAP PO SCH (23:27)
[2016-11-14 23:39] VITALS: BP 114/75; PULSE 85; TEMP 38.7; O2SAT 93
[2016-11-15] VITALS (7 sets, daily range): BP systolic 102–158; BP diastolic 67–96; PULSE 56–68; TEMP 36.2–37.3; O2SAT 93–96
[2016-11-15] MEDS: PIPERACILL/TAZOBAC IV 4.5 GM in DEXTROSE 5% 100ML 100 ML IV SCH ×4 (00:45→23:32)
[2016-11-15] MEDS: VANCOMYCIN INJ 1,500 MG in SODIUM CHLORIDE 0.9% 500ML 500 ML IV SCH ×2 (04:26→15:54)
[2016-11-15 05:49] LABS: HEMATOCRIT 39.8 % (42-52); MEAN CELL VOLUME 86.7 fL (80-100); MEAN CORPUSCULAR HEMOGLOBIN 31.8 pg (25-34); MEAN CORPUSCULAR HGB CONC 36.7 g/dl (32-36); RED BLOOD COUNT 4.59 M/uL (4.7-6.1)
[2016-11-15 06:18] LABS: BUN/CREATININE RATIO 12.4 (10-20); CALCIUM 7.7 mg/dl (8.5-10.1); CREATININE 1.2 mg/dl (0.60-1.40); MAGNESIUM 1.9 mg/dl (1.8-2.4); POTASSIUM 3.4 mmol/L (3.5-5.1)
[2016-11-15 06:28] LABS: MEAN PLATELET VOLUME 11.5 fL (7.4-10.4); PLATELET COUNT 56 K/uL (130-400)
[2016-11-15 06:29] LABS: PLT ESTIMATE DECREASED
[2016-11-15] MEDS: INSULIN ASPART 100 UNITS/ML 3 ML PEN SC SCH ×4 (08:00→20:39)
[2016-11-15] MEDS: CHOLECALCIFEROL 1000 INTER.UNIT TAB PO SCH (08:05)
[2016-11-15] MEDS: DOXYCYCLINE HYCLATE 100 MG CAP PO SCH ×2 (08:06→20:38)
[2016-11-15] MEDS: METOPROLOL TARTRATE 50 MG TAB PO SCH (08:06)
[2016-11-15] MEDS: GABAPENTIN 300 MG CAP PO SCH (08:06)
[2016-11-15] MEDS: AMLODIPINE BESYLATE 5 MG TAB PO SCH (08:06)
[2016-11-15] MEDS ORDERED: ATORVASTATIN 10 MG TAB PO SCH (09:00)
[2016-11-15] MEDS ORDERED: ASPIRIN 81 MG ECTAB PO SCH (09:00)
[2016-11-15] MEDS ORDERED: LOSARTAN/HCTZ 50-12.5 EA TAB PO SCH (09:00)
--- NOTE | 2016-11-15 09:52 | Medical Consult ---
Consultation Date of Consultation: Nov 15, 2016. Attending Physician: Jevon Regan MD, PhD Reason for Consultation: Sepsis History of Present Illness 60-year-old male with history of diabetes mellitus, coronary artery disease, status post coronary artery bypass surgery, who was in usual state of health until 2 days prior to admission when he had the relatively abrupt onset of fever , shaking chills, nausea, headache, backache, and muscle aches and pains. He came to the emergency department where he was found to be hypotensive but responded to fluid resuscitation. Thus far blood cultures have been negative, has now developed decreasing platelet count. Patient has frequent outdoor activities but no obvious recent tick bite. No other significant travel or exposure history. Has been started on broad-spectrum antibiotics. Past Medical/Surgical History Past Medical/Surgical History CAD AL on 04/01/12, CABG x 3 on 04/03/12 HTN HLD DM II w/neuropathy Family History Diabetes mellitus Hypertension Kidney disease Lung cancer Myocardial infarction Stroke Social History Smoking Status: Never Smoker Smokeless Tobacco Use: No Alcohol Use: occasionally Drug Use: none Marital Status: Occupation Status: retired Allergies Coded Allergies: No Known Allergies (Unverified , 11/14/16) Current Inpatient Medications Current Inpatient Medications Medications (Trade) Dose Ordered Sig/Parish Route Start Time Stop Time Status Last Admin Dose Admin Potassium Chloride/Sodium Chloride 1,000 ml @ 125 mls/hr Q8H IV 11/14/16 16:00 12/14/16 15:59 11/14/16 23:35 125 MLS/HR Acetaminophen (Tylenol Tab) 650 mg Q4H PRN PO 11/14/16 13:30 12/14/16 13:29 11/14/16 23:35 650 MG Al Hydrox/Mg Hydrox/Simethicone (Maalox Max Susp) 15 ml Q4H PRN PO 11/14/16 13:30 12/14/16 13:29 Magnesium Hydroxide (Milk Of Magnesia Susp) 30 ml Q12H PRN PO 11/14/16 13:30 12/14/16 13:29 Ondansetron HCl (Zofran Inj) 4 mg Q6H PRN IV 11/14/16 13:30 12/14/16 13:29 Polyethylene (Miralax Powder Packet) 17 gm DAILY PRN PO 11/14/16 13:30 12/14/16 13:29 Glucose (Glucose 40% Gel) 15-30 GRAMS 15 GRAMS... UD PRN PO 11/14/16 13:30 12/14/16 13:29 Glucose (Glucose Chew Tab) 4-8 Tablets 4 Tabl... UD PRN PO 11/14/16 13:30 12/14/16 13:29 Dextrose (Dextrose 50% 50ML Syringe) 25-50ML OF 50% DW IV FOR... UD PRN IV 11/14/16 13:30 12/14/16 13:29 Glucagon (Glucagon Inj) 1 mg UD PRN SQ 11/14/16 13:30 12/14/16 13:29 Insulin Aspart (novoLOG ASPART) SLIDING SCALE G... ACHS SC 11/14/16 16:00 12/14/16 15:59 Amlodipine Besylate (Norvasc Tab) 10 mg DAILY PO 11/15/16 09:00 12/15/16 08:59 11/15/16 08:06 10 MG Aspirin (Ecotrin Tab) 81 mg DAILY PO 11/15/16 09:00 12/15/16 08:59 Future Hold Atorvastatin Calcium (Lipitor Tab) 10 mg Q2D@0900 PO 11/15/16 09:00 12/15/16 08:59 11/15/16 08:06 10 MG Cholecalciferol (Vitamin D Tab) 1,000 inter.unit DAILY PO 11/15/16 09:00 12/15/16 08:59 11/15/16 08:05 1,000 INTER.UNIT Gabapentin (Neurontin Cap) 100 mg QPM PO 11/14/16 21:00 12/14/16 20:59 11/14/16 20:47 100 MG Gabapentin (Neurontin Cap) 300 mg QAM PO 11/15/16 09:00 12/15/16 08:59 11/15/16 08:06 300 MG HCTZ/Losartan Potassium (Hyzaar 50-12.5 Tab) 1 tab DAILY PO 11/15/16 09:00 12/15/16 08:59 Future Hold Metoprolol Tartrate (Lopressor Tab) 50 mg DAILY PO 11/15/16 09:00 12/15/16 08:59 11/15/16 08:06 50 MG Vancomycin HCl 1500 mg/Sodium Chloride 530 ml @ 200 mls/hr Q12H IV 11/15/16 04:00 11/16/16 20:59 11/15/16 04:26 200 MLS/HR Piperacillin Sod/ Tazobactam Sod 4.5 gm/Dextrose 120 ml @ 30 mls/hr Q8H IV 11/14/16 16:00 11/16/16 15:59 11/15/16 08:05 30 MLS/HR Ioversol (Optiray 320) 125 ml UD PRN IV 11/14/16 14:45 11/18/16 14:44 Vancomycin HCl (Consult) 1 ea UD PRN N/A 11/14/16 16:00 12/14/16 15:59 Piperacillin Sod/ Tazobactam Sod (Consult) 1 ea UD PRN N/A 11/14/16 16:00 12/14/16 15:59 Doxycycline Hyclate (Vibramycin Cap) 100 mg BID PO 11/14/16 23:00 11/24/16 22:59 11/15/16 08:06 100 MG Review of Systems Constitutional: + fever, + chills, + weakness, + fatigue Eyes: No problem reported ENT: No problem reported Respiratory: No problem reported Cardiovascular: No problem reported Abdomen: + pain, + nausea, + vomiting, No diarrhea Musculoskeletal: + joint pain Genitourinary - Male: No problem reported Neurologic: No problem reported Psychiatric: No problem reported Endocrine: + fatigue Hematologic / Lymphatic: No problem reported Integumentary: No problem reported Allergic / Immunologic: No problem reported Physical Exam Date Time Temp Pulse Resp B/P (MAP) Pulse Ox O2 Delivery O2 Flow Rate FiO2 11/15/16 08:30 Room Air 11/15/16 07:51 36.8 66 18 122/79 (93) 96 11/15/16 04:00 36.6 68 18 137/85 (102) 96 Room Air 11/15/16 04:00 Room Air 11/15/16 01:06 37.3 11/15/16 00:00 Room Air 11/14/16 23:39 38.7 85 20 114/75 (88) 93 Room Air 11/14/16 20:00 Room Air 11/14/16 19:33 37.0 75 18 94/60 (71) 92 Room Air 11/14/16 17:54 38.2 8/15/17 16:22 37.6 11/14/16 16:00 94 Room Air 11/14/16 14:17 98 20 163/94 93 Room Air 11/14/16 12:40 90 11/14/16 12:35 93 Room Air 11/14/16 12:30 36.8 88 24 148/93 93 Room Air 11/14/16 11:30 73 18 121/73 94 Room Air 11/14/16 10:36 74 94 11/14/16 10:31 117/65 11/14/16 10:06 76 25 91 11/14/16 10:01 103/64 11/14/16 09:56 99/63 General Appearance: WD/WN, no apparent distress Head: normocephalic, atraumatic Eyes: normal inspection, EOMI, sclerae normal ENT: normal ENT inspection, pharynx normal Neck: supple, no adenopathy, thyroid normal, trachea midline Respiratory/Chest: chest non-tender, lungs clear, normal breath sounds, no respiratory distress Cardiovascular: regular rate, rhythm, no gallop, no murmur Abdomen/GI: normal bowel sounds, non tender, soft, no organomegaly Back: normal inspection, no CVA tenderness Extremities/Musculoskelatal: no calf tenderness, non-tender Neurologic/Psych: alert, normal mood/affect, oriented x 3 Skin: normal color, warm/dry, no rash Lymphatic: no adenopathy Laboratory Results Last 24 Hours Test 11/14/16 15:10 11/14/16 15:51 11/14/16 18:06 11/14/16 20:05 Bedside Glucose 175 mg/dl 165 mg/dl Lactic Acid Level 2.1 mmol/L Test 11/15/16 05:31 11/15/16 07:39 11/15/16 07:49 White Blood Count 3.50 K/uL Red Blood Count 4.59 M/uL Hemoglobin 14.6 g/dL Hematocrit 39.8 % Mean Corpuscular Volume 86.7 fL Mean Corpuscular Hemoglobin 31.8 pg Mean Corpuscular Hemoglobin Concent 36.7 g/dl RDW Standard Deviation 43.1 fL RDW Coefficient of Variation 13.5 % Platelet Count 56 K/uL Mean Platelet Volume 11.5 fL Blood Smear Review Platelet Estimate DECREASED Sodium Level 139 mmol/L Potassium Level 3.4 mmol/L Chloride Level 106 mmol/L Carbon Dioxide Level 28 mmol/L Anion Gap 5.0 mmol/L Blood Urea Nitrogen 15 mg/dl Creatinine 1.20 mg/dl Est Creatinine Clear Calc Drug Dose 82.7 ml/min Estimated GFR () 75.7 Estimated GFR (Non- 65.3 BUN/Creatinine Ratio 12.4 Random Glucose 139 mg/dl Lactic Acid Level 1.2 mmol/L Calcium Level 7.7 mg/dl Magnesium Level 1.9 mg/dl Bedside Glucose 141 mg/dl Heparin-PF4 Antibody Screen POS CT ABD/PELVIS IV CONTRAST ONLY CLINICAL HISTORY: fevers, epigastric pain COMPARISON STUDY: Biliary ultrasound dated 11/14/2016 TECHNIQUE: Following the IV administration of 110 mL of Optiray-320, CT scan of the abdomen and pelvis was performed from the lung bases to the proximal femurs. Images are reviewed in the axial, sagittal, and coronal planes. IV contrast was administered without complication. A dose lowering technique was utilized adhering to the principles of ALARA. CT DOSE: 1307.90 mGy.cm FINDINGS: Lower chest: There are bibasal atelectatic changes. There are trace effusions. Liver: There is mild hepatic steatosis. No space-occupying hepatic masses are visualized. Gallbladder: Unremarkable. Spleen: The spleen is mildly enlarged measuring 13.9 cm. Pancreas: Unremarkable. Adrenal glands: Unremarkable. Kidneys: There is symmetric renal cortical enhancement. The kidneys are normal in size without hydronephrosis. Bowel: There are no transition zones indicate bowel obstruction. There is no acute diverticulitis. There is no evidence of acute appendicitis. Peritoneum: There is no ascites. There is no free air. There are bilateral inguinal hernias. The right inguinal hernia contains a portion of the bladder dome. Vasculature: The abdominal aorta is normal in course and caliber. Adenopathy: None. Pelvic viscera: The bladder, and pelvic viscera are unremarkable. Skeletal structures: There are postsurgical changes of midline sternotomy. 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 There are advanced multilevel degenerative changes within the spine. IMPRESSION: 1. No evidence of bowel obstruction. No evidence of free air 2. Hepatic steatosis 3. Mild splenomegaly 4. No evidence of acute appendicitis. No evidence of acute diverticulitis 5. Bilateral inguinal hernias. The right inguinal hernia contains a portion of the bladder. Electronically signed by: Ibrahima Maloney M.D. 11/14/2016 3:06 PM Dictated Date/Time: 11/14/2016 3:00 PM The status of this report is Signed. Draft = Not yet reviewed or Assessment & Plan 60 yo male with fever and now developing leukopenia and thrombocytopenia. 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 Will have peripheral smear evaluated by pathology. Continue Abx until blood cultures negative. Will follow.
[2016-11-15] MEDS: NSS + 20MEQ KCL 1000ML 1,000 ML IV SCH ×2 (10:50→15:55)
--- NOTE | 2016-11-15 16:29 | Progress Note ---
Subjective Date of Service: Nov 15, 2016. Subjective Pt evaluation today including: conversation w/ patient, physical exam, chart review, lab review, review of studies, conversation w/ websphere commerce consultant, review of inpatient medication list Sitting up, and walk, no more fever, eating okay, no other complaint Problem List Medical Problems: (1) Hypokalemia Status: Acute (2) Hypomagnesemia Status: Acute Review of Systems Constitutional: No fever, No chills, No sweats, No weight loss, No weakness, No fatigue, No problem reported Eyes: No worsening of vision, No eye pain, No redness, No discharge, No diplopia ENT: No hearing loss, No unusual epistaxis, No nasal symptoms, No sore throat, No tinnitus, No dental problems, No trouble swallowing Respiratory: No cough, No sputum, No wheezing, No shortness of breath, No dyspnea on exertion, No dyspnea at rest, No hemoptysis Cardiac: No chest pain, No orthopnea, No PND, No edema, No claudication, No palpitations Abdomen: No pain, No nausea, No vomiting, No diarrhea, No constipation Musculoskeletal: No joint pain, No muscle pain, No swelling, No calf pain Male : No dysuria, No urinary frequency, No incontinence, No nocturia more than once/night, No slowing stream, No hematuria Neurologic: No memory loss, No paralysis, No weakness, No numbness/tingling, No vertigo, No balance problems Psychiatric: No depression symptoms, No anhedonism, No anxiety, No insomnia, No substance abuse Heme: No abnormal bleeding/bruising, No clotting problems, No swollen lymph nodes, No night sweats Endo: No fatigue, No excessive thirst, No excessive urination Skin: No rash, No itch, No new/changing skin lesions, No color change, No bleeding Objective Vital Signs Date Time Temp Pulse Resp B/P (MAP) Pulse Ox O2 Delivery O2 Flow Rate FiO2 11/15/16 15:47 36.8 63 18 158/96 (116) 93 Room Air 11/15/16 12:15 Room Air 11/15/16 11:31 36.7 56 18 102/67 (79) 93 11/15/16 10:53 36.2 11/15/16 08:30 Room Air 11/15/16 07:51 36.8 66 18 122/79 (93) 96 11/15/16 04:00 36.6 68 18 137/85 (102) 96 Room Air 11/15/16 04:00 Room Air 11/15/16 01:06 37.3 11/15/16 00:00 Room Air 11/14/16 23:39 38.7 85 20 114/75 (88) 93 Room Air 11/14/16 20:00 Room Air 11/14/16 19:33 37.0 75 18 94/60 (71) 92 Room Air 11/14/16 17:54 38.2 11/14/16 16:22 37.6 Physical Exam General Appearance: WD/WN, no apparent distress Eyes: normal inspection, PERRL, EOMI, sclerae normal ENT: normal ENT inspection, hearing grossly normal, pharynx normal Neck: supple, no adenopathy, thyroid normal, no JVD, no carotid bruits, trachea midline Respiratory/Chest: chest non-tender, lungs clear, normal breath sounds, no respiratory distress, no accessory muscle use Cardiovascular: regular rate, rhythm, no edema, no gallop, no JVD, no murmur Abdomen: normal bowel sounds, non tender, soft, no organomegaly, no pulsatile mass Extremities: normal range of motion, non-tender, normal inspection, no pedal edema, no calf tenderness, normal capillary refill, pelvis stable Neurologic/Psychiatric: project developer II-XII nml as tested, no motor/sensory deficits, alert, normal mood/affect, oriented x 3, + abnormal cerebellar tests Skin: normal color, warm/dry, no rash Lymphatic: no adenopathy Laboratory Results Last 24 Hours Test 11/14/16 18:06 11/14/16 20:05 11/15/16 05:31 11/15/16 07:39 Bedside Glucose 165 mg/dl 141 mg/dl White Blood Count 3.50 K/uL Red Blood Count 4.59 M/uL Hemoglobin 14.6 g/dL Hematocrit 39.8 % Mean Corpuscular Volume 86.7 fL Mean Corpuscular Hemoglobin 31.8 pg Mean Corpuscular Hemoglobin Concent 36.7 g/dl RDW Standard Deviation 43.1 fL RDW Coefficient of Variation 13.5 % Platelet Count 56 K/uL Mean Platelet Volume 11.5 fL Blood Smear Review Platelet Estimate DECREASED Sodium Level 139 mmol/L Potassium Level 3.4 mmol/L Chloride Level 106 mmol/L Carbon Dioxide Level 28 mmol/L Anion Gap 5.0 mmol/L Blood Urea Nitrogen 15 mg/dl Creatinine 1.20 mg/dl Est Creatinine Clear Calc Drug Dose 82.7 ml/min Estimated GFR () 75.7 Estimated GFR (Non- 65.3 BUN/Creatinine Ratio 12.4 Random Glucose 139 mg/dl Lactic Acid Level 1.2 mmol/L Calcium Level 7.7 mg/dl Magnesium Level 1.9 mg/dl Test 11/15/16 07:49 11/15/16 10:56 11/15/16 11:17 Heparin-PF4 Antibody Screen POS Procalcitonin 0.93 ng/ml Bedside Glucose 139 mg/dl Assessment and Plan 60 y/o male admitted on 11/14 with fevers, chills and nausea x 2 days. Per report , febrile with temperature of 38C on arrival, HR 92. EKG shows no ischemic changes. CXR no acute disease. Abdominal ultrasound shows fatty liver, otherwise unremarkable. Potassium 3.3, magnesium 1.3. POC lactic acid 2.27. Cardiac enzymes negative. Pt did become hypotensive in ED with BP down to 99/63, but this resolved with a 1L NSS bolus. 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 The appearance of these neutrophilic cytoplasmic bodies is most consistent with Ehrlichia/Anaplasma organisms Discussed with Dr. Pendleton, patient already on doxycycline, we will continue current care Significance thrombocytopenia PLT drop from 106 to 50, patient don't have recent heparin exposure, the risk of predictive value for HIT is low, although PFT 4 is positive, patient who have some other reason cause of thrombocytopenia such as sepsis, using antibiotics, talked to diamond mounter bottom turner, filled HRT possibility is low, we'll continue follow-up, I feel patient can be seen tomorrow by specialist in this aspect Continue telemetry, NSS + 20 KCl at 125 cc/hr as pt has not been eating much Follow-up Blood cultures , and urine culture [place] negative CT abd/pelvis mild splenomegaly with low platelets, splenomegaly, febrile illness Continue empiric vancomycin, Zosyn, adn doxy, for now pending cultures Hypomagnesemia, hypokalemia, replace and follow-up CAD, h/o PA and CABG, HTN, HLD--stable -Continue amlodipine 10 mg PO qd, ASA 81 mg PO qd, atorvastatin 10 mg PO q2d, losartan/HCTZ 100/25 mg PO qd, and metoprolol tartrate 50 mg PO qd DM II w/neuropathy--last HgbA1c checked 08/14/16 was 6.3 -Hold metformin and 70/30 -Insulin sliding scale -Check BSGs q ac and qhs -Recheck HgbA1c -Continue gabapentin 300 mg PO qam and 100 mg PO qpm DVT prophylaxis, SCD bilateral lower extremity Discontinue Enoxaparin 40 mg SC q24h, because of significant thrombocytopenia Code Status -Level I, FULL RESUSCITATION STATUS Continued [facility] stay due to: multiple IV medications needed Discharge planning: home
[2016-11-15] MEDS ORDERED: POTASSIUM CHLORIDE 10 MEQ TABCR PO ONE (16:45)
[2016-11-15] MEDS: GABAPENTIN 100 MG CAP PO SCH (20:38)
[2016-11-16 00:16] VITALS: BP 132/81; PULSE 58; TEMP 37; O2SAT 95
[2016-11-16 01:45] VITALS: BP 125/74; PULSE 63; TEMP 36.8; O2SAT 93
[2016-11-16] MEDS ORDERED: METOPROLOL TARTRATE 1 MG/ML VIAL IV PRN (02:15)
[2016-11-16 04:25] VITALS: BP 149/89; PULSE 53; TEMP 36.9; O2SAT 95
[2016-11-16] MEDS: NSS + 20MEQ KCL 1000ML 1,000 ML IV SCH (04:40)
[2016-11-16] MEDS: VANCOMYCIN INJ 1,500 MG in SODIUM CHLORIDE 0.9% 500ML 500 ML IV SCH (04:40)
[2016-11-16 06:17] LABS: MEAN CORPUSCULAR HEMOGLOBIN 31.1 pg (25-34); MEAN CORPUSCULAR HGB CONC 35.7 g/dl (32-36); MEAN PLATELET VOLUME 12.7 fL (7.4-10.4); PLATELET COUNT 65 K/uL (130-400); RED BLOOD COUNT 4.83 M/uL (4.7-6.1); WHITE BLOOD COUNT 3.41 K/uL (4.8-10.8)
[2016-11-16 06:47] LABS: BUN/CREATININE RATIO 10.7 (10-20); CALCIUM 8.4 mg/dl (8.5-10.1); CREATININE 0.95 mg/dl (0.60-1.40); MAGNESIUM 1.8 mg/dl (1.8-2.4); POTASSIUM 3.5 mmol/L (3.5-5.1)
[2016-11-16] MEDS: DOXYCYCLINE HYCLATE 100 MG CAP PO SCH (08:24)
[2016-11-16] MEDS: AMLODIPINE BESYLATE 5 MG TAB PO SCH (08:24)
[2016-11-16] MEDS: GABAPENTIN 300 MG CAP PO SCH (08:24)
[2016-11-16] MEDS: CHOLECALCIFEROL 1000 INTER.UNIT TAB PO SCH (08:25)
[2016-11-16] MEDS: METOPROLOL TARTRATE 50 MG TAB PO SCH (08:25)
[2016-11-16] MEDS: INSULIN ASPART 100 UNITS/ML 3 ML PEN SC SCH ×2 (08:26→11:00)
[2016-11-16] MEDS: PIPERACILL/TAZOBAC IV 4.5 GM in DEXTROSE 5% 100ML 100 ML IV SCH (08:30)
[2016-11-16 10:01] VITALS: BP 127/78; PULSE 60; TEMP 36.8; O2SAT 96
--- NOTE | 2016-11-16 10:03 | Infectious Disease Progress Nt ---
Progress Note Date of Service Nov 16, 2016. Subjective Pt evaluation today including: conversation w/ patient, physical exam, chart review, lab review, review of studies, conversation w/ analysis consultant, review of inpatient medication list Patient feeling better. No fever. Peripheral smear c/w Anaplasma infection. Platelets slightly better. All Other Systems: Reviewed and Negative Medications Current Inpatient Medications Medications (Trade) Dose Ordered Sig/Parish Route Start Time Stop Time Status Last Admin Dose Admin Potassium Chloride/Sodium Chloride 1,000 ml @ 75 mls/hr [id number] IV 11/14/16 16:00 12/14/16 15:59 11/16/16 04:40 75 MLS/HR Acetaminophen (Tylenol Tab) 650 mg Q4H PRN PO 11/14/16 13:30 12/14/16 13:29 11/14/16 23:35 650 MG Al Hydrox/Mg Hydrox/Simethicone (Maalox Max Susp) 15 ml Q4H PRN PO 11/14/16 13:30 12/14/16 13:29 Magnesium Hydroxide (Milk Of Magnesia Susp) 30 ml Q12H PRN PO 11/14/16 13:30 12/14/16 13:29 Ondansetron HCl (Zofran Inj) 4 mg Q6H PRN IV 11/14/16 13:30 12/14/16 13:29 Polyethylene (Miralax Powder Packet) 17 gm DAILY PRN PO 11/14/16 13:30 12/14/16 13:29 Glucose (Glucose 40% Gel) 15-30 GRAMS 15 GRAMS... UD PRN PO 11/14/16 13:30 12/14/16 13:29 Glucose (Glucose Chew Tab) 4-8 Tablets 4 Tabl... UD PRN PO 11/14/16 13:30 12/14/16 13:29 Dextrose (Dextrose 50% 50ML Syringe) 25-50ML OF 50% DW IV FOR... UD PRN IV 11/14/16 13:30 12/14/16 13:29 Glucagon (Glucagon Inj) 1 mg UD PRN SQ 11/14/16 13:30 12/14/16 13:29 Insulin Aspart (novoLOG ASPART) SLIDING SCALE G... ACHS SC 11/14/16 16:00 12/14/16 15:59 Amlodipine Besylate (Norvasc Tab) 10 mg DAILY PO 11/15/16 09:00 12/15/16 08:59 11/16/16 08:24 10 MG Aspirin (Ecotrin Tab) 81 mg DAILY PO 11/15/16 09:00 12/15/16 08:59 Future Hold Atorvastatin Calcium (Lipitor Tab) 10 mg Q2D@0900 PO 11/15/16 09:00 12/15/16 08:59 11/15/16 08:06 10 MG Cholecalciferol (Vitamin D Tab) 1,000 inter.unit DAILY PO 11/15/16 09:00 12/15/16 08:59 11/16/16 08:25 1,000 INTER.UNIT Gabapentin (Neurontin Cap) 100 mg QPM PO 11/14/16 21:00 12/14/16 20:59 11/15/16 20:38 100 MG Gabapentin (Neurontin Cap) 300 mg QAM PO 11/15/16 09:00 12/15/16 08:59 11/16/16 08:24 300 MG HCTZ/Losartan Potassium (Hyzaar 50-12.5 Tab) 1 tab DAILY PO 11/15/16 09:00 12/15/16 08:59 Future Hold Metoprolol Tartrate (Lopressor Tab) 50 mg DAILY PO 11/15/16 09:00 12/15/16 08:59 11/16/16 08:25 50 MG Vancomycin HCl 1500 mg/Sodium Chloride 530 ml @ 200 mls/hr Q12H IV 11/15/16 04:00 11/16/16 20:59 11/16/16 04:40 200 MLS/HR Piperacillin Sod/ Tazobactam Sod 4.5 gm/Dextrose 120 ml @ 30 mls/hr Q8H IV 11/14/16 16:00 11/16/16 15:59 11/16/16 08:30 30 MLS/HR Ioversol (Optiray 320) 125 ml UD PRN IV 11/14/16 14:45 11/18/16 14:44 Vancomycin HCl (Consult) 1 ea UD PRN N/A 11/14/16 16:00 12/14/16 15:59 Piperacillin Sod/ Tazobactam Sod (Consult) 1 ea UD PRN N/A 11/14/16 16:00 12/14/16 15:59 Doxycycline Hyclate (Vibramycin Cap) 100 mg BID PO 11/14/16 23:00 11/24/16 22:59 11/16/16 08:24 100 MG Metoprolol Tartrate (Lopressor Iv) 5 mg Q4H PRN IV 11/16/16 02:15 12/16/16 02:14 Objective Vital Signs Date Time Temp Pulse Resp B/P (MAP) Pulse Ox O2 Delivery O2 Flow Rate FiO2 11/16/16 04:25 36.9 53 20 149/89 (109) 95 Room Air 11/16/16 04:00 Room Air 11/16/16 01:45 36.8 63 18 125/74 (91) 93 Room Air 11/16/16 00:16 37.0 58 20 132/81 (98) 95 Room Air 11/16/16 00:00 Room Air 11/15/16 21:07 37.0 68 18 122/77 (92) 94 Room Air 11/15/16 20:00 Room Air 11/15/16 16:10 Room Air 11/15/16 15:47 36.8 63 18 158/96 (116) 93 Room Air 11/15/16 12:15 Room Air 11/15/16 11:31 36.7 56 18 102/67 (79) 93 11/15/16 10:53 36.2 Physical Exam General Appearance: WD/WN, no apparent distress Eyes: normal inspection, EOMI, sclerae normal ENT: normal ENT inspection, pharynx normal Neck: supple, no adenopathy, trachea midline Respiratory/Chest: chest non-tender, lungs clear, normal breath sounds, no respiratory distress Cardiovascular: regular rate, rhythm, no gallop, no murmur Abdomen: normal bowel sounds, non tender, soft, no organomegaly Extremities: non-tender, no calf tenderness Neurologic/Psychiatric: alert, normal mood/affect, oriented x 3 Skin: normal color, warm/dry, no rash Lymphatic: no adenopathy Laboratory Results RUN DATE: 11/16/16 [facility] LAB PAGE 1 RUN TIME: 0650 Specimen Inquiry PATIENT: AKILAH [facility]AD[facility]A [facility] : [id number] AGE/SX: 60/M ROOM: [facility] REG : 11/14/[address]: Jevon Regan MD, PhD : 1955 BED: 2 DIS : STATUS: ADM IN TLOC: SPEC #: [id number] BIANKA: 11/14/16 STATUS: RES REQ #: [id number] RECD: 11/14/[address]: Clement Alexis PA -C SOURCE: BLOOD ENTR: 11/14/[address]: Monroe Abdi MD SPDC: Esdras Chilel M.D. ORDERED: BLOOD CULTURE Procedure Result Verified Site BLD CULT Preliminary 11/16/16-0649 NO GROWTH TO DATE. Last 24 Hours Test 11/15/16 10:56 11/15/16 11:17 11/15/16 16:51 11/15/16 20:34 Procalcitonin 0.93 ng/ml Bedside Glucose 139 mg/dl 138 mg/dl 177 mg/dl Test 11/16/16 05:22 11/16/16 07:32 White Blood Count 3.41 K/uL Red Blood Count 4.83 M/uL Hemoglobin 15.0 g/dL Hematocrit 42.0 % Mean Corpuscular Volume 87.0 fL Mean Corpuscular Hemoglobin 31.1 pg Mean Corpuscular Hemoglobin Concent 35.7 g/dl RDW Standard Deviation 42.8 fL RDW Coefficient of Variation 13.4 % Platelet Count 65 K/uL Mean Platelet Volume 12.7 fL Sodium Level 140 mmol/L Potassium Level 3.5 mmol/L Chloride Level 107 mmol/L Carbon Dioxide Level 26 mmol/L Anion Gap 7.0 mmol/L Blood Urea Nitrogen 10 mg/dl Creatinine 0.95 mg/dl Est Creatinine Clear Calc Drug Dose 104.6 ml/min Estimated GFR () 100.4 Estimated GFR (Non- 86.7 BUN/Creatinine Ratio 10.7 Random Glucose 135 mg/dl Calcium Level 8.4 mg/dl Magnesium Level 1.8 mg/dl Bedside Glucose 125 mg/dl Assessment and Plan 60 yo male with acute Anaplasma infection, responding to doxycycline. Have discontinued IV antibiotics, and would give doxycycline for 14 days total. See no contraindication to discharge for outpatient followup from ID standpoint. Will discuss.
[2016-11-16] MEDS ORDERED: DXY100 PO (11:14)
--- NOTE | 2016-11-16 11:16 | Discharge Instructions ---
Discharge Instructions Date of Service Nov 16, 2016. Admission Reason for Admission: Sepsis Discharge Discharge Diagnosis / Problem: acute Anaplasma infection, Discharge Goals Goal(s): Decrease discomfort, Improve function, Increase independence, Improve disease control, Improve nutritional status, Learn about illness, Diagnostic testing, Therapeutic intervention, Prevent Disease Progression, Specific goals Activity Recommendations Activity Limitations: resume your previous activity . Instructions / Follow-Up Instructions / Follow-Up you have acute Anaplasma infection, you have Significance thrombocytopenia likely from Anaplasma infection, you need to Follow-up Blood cultures , and urine culture, and thrombocytopenia with your pcp your CT abd/pelvis showed mild splenomegaly need to follow up with your pcp - you need to follow up with your primary care physician in 1 week, follow up with Dr. Pendleton in 7-10 days - take medication as instructed, never overdose or any misuse, or take with alcohol, because misuse of medicine may cause organ damage or , call your primary care physician if have questions of medicaitons. - call your primary care physician OR go to local emergency room if has any fever/chill, chest pain, shortness of breathing, nausea/vomiting/abdominal pain , facial droop/slurry speech/local weakness, or if has any questions. - fall precaution - diet as instructed - you need to follow up with your subspecialist - you should understand that it is important to follow up the above instruction , and "not following the above instruction" may cause delayed or missed care of your medical conditions which may cause permanent organ damage and even . Current Hospital Diet Patient's current hospital diet: Diabetes Type 2 Diet, AHA Diet (Heart Healthy) Discharge Diet Recommended Diet: Diabetes Type 2 Diet Procedures Procedures Performed: no Pending Studies Studies pending at discharge: no Laboratory Results Hemoglobin A1c Test 11/14/16 09:02 Range/Units Estimated Average Glucose 131 mg/dl Hemoglobin A1c 6.2 H 4.5-5.6 % Medical Emergencies . Who to Call and When: Medical Emergencies: If at any time you feel your situation is an emergency, please call 911 immediately. . Non-Emergent Contact Non-Emergency issues call your: Primary Care Provider, Specialist (Dr. Pendleton) . . "Provider Documentation" section prepared by Jevon Regan. . VTE Core Measure Inpt VTE Proph given/why not?: Enoxaparin (Lovenox)TOM, T.E.D. Stockings, SCD's
[2016-11-16 12:22] VITALS: BP 121/86; PULSE 58; TEMP 36.9; O2SAT 94
[2016-11-16 13:43] VITALS: BP 121/86; PULSE 58; TEMP 36.9; O2SAT 94
--- NOTE | 2016-11-16 17:10 | Discharge Summary ---
Discharge Summary Date of Service Nov 16, 2016. Discharge Summary Admission Date: Nov 14, 2016 at 13:38 Discharge Date: Nov 16, 2016 Discharge Disposition: Home Principal Diagnosis: acute Anaplasma infection Problems/Secondary Diagnoses: Significance thrombocytopenia likely from Anaplasma infection, Possible sepsis mild splenomegaly in abdominal CT study Procedures: No Consultations: Infectious disease Medication Reconciliation New Medications: Doxycycline Hyclate (Doxycycline Hyclate) 100 Mg Cap 100 MG PO BID for 12 Days, #24 CAP Continued Medications: Amlodipine (Norvasc) 10 Mg Tab 10 MG PO DAILY, TAB Aspirin (Aspirin Ec) 81 Mg Tab 81 MG PO DAILY Atorvastatin (Lipitor) 10 Mg Tab 10 MG PO Q2D, TAB Cholecalciferol (Vitamin D) 1,000 Unit Tab 1000 UNITS PO DAILY Cyanocobalamin (B-12) 5,000 Mcg Cap 5000 MCG PO DAILY Gabapentin (Neurontin) 100 Mg Cap 300 MG PO QAM, CAP Gabapentin (Neurontin) 100 Mg Cap 100 MG PO QPM, CAP Hctz/Losartan (Hyzaar 25MG/100MG) 1 Ea Tab 1 TAB PO DAILY, TAB Insulin Aspart 70/30 (Novolog Mix 70/30) Susp 30 SC QAM, BTL Insulin Aspart 70/30 (Novolog Mix 70/30) Susp 25 SC QPM, BTL Metformin HCl (Metformin HCl) 500 Mg Tab 500 MG PO BID Metoprolol Tartrate (Lopressor) (Lopressor) 50 Mg Tab 50 MG PO DAILY, TAB Discharge Exam Doing well, no spiking fever, up and walk, tolerated diet Review of Systems: Constitutional: No fever, No chills, No sweats, No weight loss, No weakness , No fatigue, No problem reported Eyes: No worsening of vision, No eye pain, No redness, No discharge, No diplopia, No problem reported ENT: No hearing loss, No unusual epistaxis, No nasal symptoms, No sore throat, No tinnitus, No dental problems, No trouble swallowing, No problem reported Respiratory: No cough, No sputum, No wheezing, No shortness of breath, No dyspnea on exertion, No dyspnea at rest, No hemoptysis, No problem reported Cardiovascular: No chest pain, No orthopnea, No PND, No edema, No claudication, No palpitations, No problem reported Abdomen: No pain, No nausea, No vomiting, No diarrhea, No constipation, No GI bleeding, No problem reported Genitourinary - Male: No hematuria, No dysuria, No urinary frequency, No urinary urgency, No urinary hesitancy, No urinary retention, No urinary incontinence, No penile discharge, No lesions, No impotence, No problem reported Neurologic: No memory loss, No paralysis, No weakness, No numbness/tingling , No vertigo, No balance problems, No problem reported Psychiatric: No depression symptoms, No anhedonism, No anxiety, No insomnia , No substance abuse, No problem reported Endocrine: No fatigue, No excessive thirst, No excessive urination, No problem reported Hematologic / Lymphatic: No abnormal bleeding/bruising, No clotting problems , No swollen lymph nodes, No night sweats, No problem reported Integumentary: No rash, No itch, No new/changing skin lesions, No color change, No bleeding, No problem reported Physical Exam: General Appearance: WD/WN, no apparent distress, + obese Eyes: normal inspection, PERRL ENT: normal ENT inspection, hearing grossly normal, TMs normal Neck: supple, no adenopathy Respiratory/Chest: chest non-tender, no respiratory distress, no accessory muscle use, + decreased breath sounds Cardiovascular: regular rate, rhythm, no edema, no gallop, no JVD Abdomen / GI: normal bowel sounds, non tender, soft, no organomegaly, no pulsatile mass Extremities: normal inspection, no calf tenderness, normal capillary refill , no pedal edema, normal range of motion Neurologic/Psychiatric: pumper gauger II-XII nml as tested, no motor/sensory deficits , alert, normal mood/affect Skin: normal color, warm/dry Hospital Course 60 y/o male admitted on 11/14 with fevers, chills and nausea x 2 days. Per report , febrile with temperature of 38C on arrival, HR 92. EKG shows no ischemic changes. CXR no acute disease. Abdominal ultrasound shows fatty liver, otherwise unremarkable. Potassium 3.3, magnesium 1.3. POC lactic acid 2.27. Cardiac enzymes negative. Pt did become hypotensive in ED with BP down to 99/63, but this resolved with a 1L NSS bolus. 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 The appearance of these neutrophilic cytoplasmic bodies is most consistent with Ehrlichia/Anaplasma organisms Discussed with Dr. Pendleton, patient already on doxycycline, we will continue doxycycline for totally 14 days Significance thrombocytopenia PLT drop from 106 to 50, , today is a 65K, patient don't have recent heparin exposure, the risk of predictive value for HIT is low, although PFT 4 is positive, patient who have some other reason cause of thrombocytopenia such as sepsis, using antibiotics, talked to computational sciences professor management associate, filled HIT possibility is low, we'll continue follow-up,now obviously that thrombocytopenia is because of acute Anaplasma infection, will cancel oncology consultation Continue telemetry, NSS + 20 KCl at 125 cc/hr as pt has not been eating much Follow-up Blood cultures , and urine culture L[place] negative CT abd/pelvis mild splenomegaly with low platelets, splenomegaly, febrile illness Has been on empiric vancomycin, Zosyn, and doxy, will give doxycycline only when discharged to home Hypomagnesemia, hypokalemia, replace and follow-up CAD, h/o ID and CABG, HTN, HLD--stable -Continue amlodipine 10 mg PO qd, ASA 81 mg PO qd, atorvastatin 10 mg PO q2d, losartan/HCTZ 100/25 mg PO qd, and metoprolol tartrate 50 mg PO qd DM II w/neuropathy--last HgbA1c checked 08/14/16 was 6.3 -Hold metformin and 70/30 -Insulin sliding scale -Check BSGs q ac and qhs -Recheck HgbA1c -Continue gabapentin 300 mg PO qam and 100 mg PO qpm DVT prophylaxis, SCD bilateral lower extremity Discontinue Enoxaparin 40 mg SC q24h, because of significant thrombocytopenia Code Status -Level I, FULL RESUSCITATION STATUS Instructions / Follow-Up you have acute Anaplasma infection, you have Significance thrombocytopenia likely from Anaplasma infection, you need to Follow-up Blood cultures , and urine culture, and thrombocytopenia with your pcp your CT abd/pelvis showed mild splenomegaly need to follow up with your pcp - you need to follow up with your primary care physician in 1 week, follow up with Dr. Pendleton in 7-10 days - take medication as instructed, never overdose or any misuse, or take with alcohol, because misuse of medicine may cause organ damage or , call your primary care physician if have questions of medicaitons. - call your primary care physician OR go to local emergency room if has any fever/chill, chest pain, shortness of breathing, nausea/vomiting/abdominal pain , facial droop/slurry speech/local weakness, or if has any questions. - fall precaution - diet as instructed - you need to follow up with your subspecialist - you should understand that it is important to follow up the above instruction , and "not following the above instruction" may cause delayed or missed care of your medical conditions which may cause permanent organ damage and even . Total Time Spent: Less than 30 minutes This includes examination of the patient, discharge planning, medication reconciliation, and communication with other providers. Discharge Instructions Please refer to the electronic Patient Visit Report (Discharge Instructions) for additional information. Additional Copies To Yared Pendleton MD; Esdras Chilel M.D.
[2016-11-17 16:32] LABS: UFH HIGH DOSE 100 IU/ML 0 % Release; UFH SEROTONIN RELEASING ASSAY Negative (Negative)
[2016-11-20 20:25] LABS: ANAPLASMA PHAGOCYTOPHIL DNA DETECTED
[2016-11-25 21:38] LABS: ANAPLASMA PHAGOCYTOPHIL IGG <1:64 (<1:64); ANAPLASMA PHAGOCYTOPHIL IGM <1:20 (<1:20); EHRLICHIA CHAFF IGG AB <1:64 (<1:64); EHRLICHIA CHAFF IGM AB <1:20 (<1:20)
== END 2016-11-16 14:25 | disposition home or self-care (01) | DRG 872 ==
LOC: C.EDB 08:18 → C.MED 13:38 → ENRESERV 14:25
PROVIDERS: ADMIT Internal Medicine; ATTEND Hospitalist
DX: A41.89 Other specified sepsis (principal); A77.49 Other ehrlichiosis; D69.59 Other secondary thrombocytopenia; R16.1 Splenomegaly, not elsewhere classified; R10.9 Unspecified abdominal pain; E87.6 Hypokalemia; E83.42 Hypomagnesemia; I25.10 Atherosclerotic heart disease of native coronary artery without angina pectoris; I10 Essential (primary) hypertension; E78.5 Hyperlipidemia, unspecified; E11.40 Type 2 diabetes mellitus with diabetic neuropathy, unspecified; E66.9 Obesity, unspecified; I25.2 Old myocardial infarction; Z68.36 Body mass index [BMI] 36.0-36.9, adult; Z79.82 Long term (current) use of aspirin; Z95.1 Presence of aortocoronary bypass graft; Z79.4 Long term (current) use of insulin; Z79.84 Long term (current) use of oral hypoglycemic drugs; Z79.899 Other long term (current) drug therapy

== ENCOUNTER → 2017-03-12 | Outpatient (CLI) | payer OTHER ==
[~2017-03-12] MED LIST changes: -CYAN5000
[2017-03-12 13:48] LABS: ESTIMATED AVERAGE GLUCOSE 137 mg/dl; HA1C FLAG Normal (Normal)
[2017-03-12 13:49] LABS: BLOOD UREA NITROGEN 14 mg/dl (7-18); BUN/CREATININE RATIO 12.3 (10-20); CALCIUM 9.3 mg/dl (8.5-10.1); CARBON DIOXIDE 24 mmol/L (21-32); CHLORIDE 103 mmol/L (98-107); CREATININE 1.13 mg/dl (0.60-1.40); GLUCOSE 174 mg/dl (70-99); POTASSIUM 3.6 mmol/L (3.5-5.1); SODIUM 135 mmol/L (136-145)
[2017-03-12 14:36] LABS: RATIO 348.1 mcg/mg (0-30.0)
== END | disposition home or self-care (01) ==
LOC: C.LABPVFM 07:44
PROVIDERS: ATTEND Nurse Practitioner Family
DX: E11.49 Type 2 diabetes mellitus with other diabetic neurological complication (principal); I10 Essential (primary) hypertension; E78.5 Hyperlipidemia, unspecified

== ENCOUNTER → 2017-08-03 | Outpatient (CLI) | payer OTHER ==
[2017-08-03 13:41] LABS: ALBUMIN 3.7 gm/dl (3.4-5.0); ALT/SGPT 35 U/L (12-78); AST/SGOT 27 U/L (15-37); BLOOD UREA NITROGEN 19 mg/dl (7-18); CALCIUM 9.5 mg/dl (8.5-10.1); CARBON DIOXIDE 27 mmol/L (21-32); CREATININE 1.23 mg/dl (0.60-1.40); GLUCOSE 139 mg/dl (70-99); POTASSIUM 3.6 mmol/L (3.5-5.1); SODIUM 140 mmol/L (136-145)
[2017-08-03 13:43] LABS: ALKALINE PHOSPHATASE 72 U/L (45-117); CHOLESTEROL 140 mg/dl (0-200); LDL CHOLESTEROL CALCULATED 61 mg/dl; TOTAL PROTEIN 7.8 gm/dl (6.4-8.2)
[2017-08-03 13:58] LABS: HEMOGLOBIN A1C 6.7 % (4.5-5.6)
== END | disposition home or self-care (01) ==
LOC: C.LABPVFM 10:10
PROVIDERS: ATTEND Nurse Practitioner Adult Health
DX: Z00.00 Encounter for general adult medical examination without abnormal findings (principal); E11.49 Type 2 diabetes mellitus with other diabetic neurological complication; E78.5 Hyperlipidemia, unspecified; I10 Essential (primary) hypertension